=== PATIENT | female | born 1990 | race African-American/Black ===

== ENCOUNTER 2019-07-09 23:16 | Emergency (ER) | payer OTHER ==
[~2019-07-09] VITALS: Ht 177.8 cm; Wt 63.0 kg
[2019-07-10] MEDS ORDERED: ACETAMINOPHEN 325MG TABLET PO STA (00:43)
[2019-07-10] MEDS ORDERED: IBUPROFEN 600MG TABLET PO STA (00:43)
[2019-07-10 01:32] VITALS: BP 132/71
== END 2019-07-10 01:34 | disposition home or self-care (01) ==
LOC: ER 23:16
DX: R05 Cough (principal); J02.9 Acute pharyngitis, unspecified; R06.02 Shortness of breath
CPT/HCPCS: 71045; 99283

== ENCOUNTER 2020-11-02 05:33 | Emergency (ER) | payer MEDICAID, OTHER ==
[~2020-11-02] VITALS: Ht 175.3 cm; Wt 74.0 kg
[2020-11-02] MEDS ORDERED: ACETAMINOPHEN 325MG TABLET PO STA (05:47)
[2020-11-02 06:04] LABS: BASOPHILS % 0.8 % (0.0-2.0); EOSINOPHILS % 1.5 % (0.0-5.0); HEMATOCRIT. 32.6 % (36.0-48.0); HEMOGLOBIN. 10.7 g/dL (12.0-16.0); LYMPHOCYTES % 30.7 % (20.0-50.0); MEAN CORPUSCULAR HEMOGLOBIN 25.7 pg (28.0-32.0); MEAN PLATELET VOLUME 7.8 fl (7.4-10.4); MONOCYTES % 6.1 % (2.0-8.0); NEUTROPHILS % 60.9 % (40.0-76.0); PLATELET 288 x1000/uL (130-400); RED BLOOD CELL COUNT 4.18 mill/uL (4.2-5.4); RED CELL DISTRIBUTION WIDTH 15.5 % (11.6-14.6)
[2020-11-02 06:12] LABS: CHLORIDE 110 mEq/L (98-107)
[2020-11-02 06:21] LABS: B-HCG QUANTITATIVE 11 mIU/mL (<3)
[2020-11-02] MEDS ORDERED: ONDANSETRON HCL 4MG/2ML INJ IV ONE (07:00)
[2020-11-02 07:02] LABS: CLARITY URINE CLOUDY (CLEAR); COLOR URINE YELLOW (YELLOW); KETONES URINE NEGATIVE (NEGATIVE); LEUKOCYTE ESTERASE URINE NEGATIVE (NEGATIVE); NITRITE URINE NEGATIVE (NEGATIVE); OCCULT BLOOD URINE 3+ (NEGATIVE); PROTEIN URINE NEGATIVE (NEGATIVE); SPECIFIC GRAVITY URINE 1.019 (1.005-1.030); UROBILINOGEN URINE 0.2 E.U./dL (0.2-1.0)
[2020-11-02] MEDS ORDERED: TOPUD PO (08:28)
[2020-11-02] MEDS ORDERED: ONDA4TAB5 PO (08:28)
[2020-11-02 09:07] VITALS: BP 126/67
== END 2020-11-02 09:07 | disposition home or self-care (01) ==
LOC: ER 05:33
DX: O02.1 Missed abortion (principal)
CPT/HCPCS: 36415; 76801; 80053; 81003; 84702; 85025; 86850; 86900; 99284